=== PATIENT | male | born 1965 | race Caucasian/White ===

== ENCOUNTER 2023-01-19 08:45 | Outpatient (CLI) | payer OTHER, SELFPAY ==
--- NOTE | 2023-01-31 16:43 | WPDHOMESLEEP ---
Sleep Study - Home Unattended Date of Study: 01/19/23 Ordering Provider: Rc Watson, Interpreting Provider: Bianca Andino, DO Home Sleep Study Type: Watch PAT Height: 1.8 m Weight: 104.326 kg Body Mass Index: 32.1 Neck Circumference (inches): 17 [place]: 17 Reason for Sleep Study Previous dx of TIERA 18 years ago that resolved with sinus surgery. Now has unrefreshing sleep and daytime hypersomnia Sleep History The patient is a 57-year-old male with hypertension, hyperlipidemia, systemic lupus erythematosus glomerular nephritis syndrome, dysthymia, erectile dysfunction, GERD and history of tobacco use that had a sleep study ordered for evaluation of sleep apnea. The patient denies awakening from sleep short of breath. He occasionally awakens at night with heartburn, belching or cough. He frequently snores and is occasionally loud enough that others complain. He occasionally has trouble sleeping when he has a cold. He denies waking up gasping for air throughout the night. He rarely has breathing problems at night observed by himself or others. He occasionally sweats excessively at night. He denies having heart palpitations or irregular heartbeats during the night. He frequently falls asleep during the day but rarely falls asleep while driving. He denies sleep paralysis and cataplexy. He occasionally has trouble at school or work due to sleepiness. He rarely experiences vivid dreamlike scenes upon awakening or falling asleep. He denies feeling afraid of going to sleep. He occasionally has nightmares. He occasionally remembers his dreams. He frequently has thoughts racing through his mind. He occasionally feels sad, depressed and anxious. He rarely has muscular tension. He occasionally notices parts of his body jerk. He rarely kicks during the night. He rarely has crawling and aching feelings in his legs and occasionally has leg pain during the night. He rarely grinds his teeth during sleep and rarely awakens with morning jaw pain. He is rarely bothered by pain during the day and rarely awakened by pain during the night. He occasionally wakes up feeling stiff in the morning. He occasionally wakes up with sore or achy muscles. He occasionally wakes up with pain in the neck, spine or other joints. He goes to bed at 10:30 p.m. on weekdays and 11:00 p.m. on the weekends. It takes him 30-60 minutes to fall asleep. He wakes up 1-2 times throughout the night for unknown reasons. It can take him anywhere from 5 minutes up to an hour to fall back asleep. He wakes up at 6:45 a.m. on weekdays and between 8:29 a.m. on the weekends. He typically gets 6 hours of sleep per night. He will stay in bed for 15-20 minutes after waking up in the morning. He currently lives with his fidelmise. He does not consume any caffeinated beverages within 2 hours of bedtime. He does not engage in physical exercise before bedtime. He will read watch television before falling asleep. He denies taking naps in the afternoon or the evening. He consumes 1-2 caffeinated beverages per day. He consumes 1 alcoholic beverage per week. He quit smoking cigarettes 40 years ago. He denies recreational drug use. Sleep Procedure The sleep study was completed using Ept[employer]T a technically adequate device with seven channels: peripheral arterial tone, actigraphy, body position, snore, respiratory movement, pulse oximetry, sleep staging, and heart rate. Prior to using the device, the patient received verbal and written instructions for its application and was provided with the help desk phone number for additional telephonic instruction with 24-hour availability of qualified personnel to answer questions. The study was scored using [facility] guidelines. Sleep Architecture The patient had a total recording time of 8 hours 32 minutes and total sleep time of 7 hours 29 minutes. The sleep efficiency was 87.61%. Sleep latency was 16 minutes and REM latency was 85 minutes. The
[2023-01-31 16:54] VITALS: BMI 32.1
== END 2023-01-20 10:21 | disposition home or self-care (01) ==
LOC: ANHCSM 08:46
PROVIDERS: PCP Internal Medicine; Visit Provider Internal Medicine
DX: G47.33 Obstructive sleep apnea (adult) (pediatric) (principal)
CPT/HCPCS: 95800

== ENCOUNTER 2023-06-01 09:10 | Outpatient (CLI) | payer OTHER, SELFPAY ==
--- NOTE | 2023-06-13 20:51 | WPDSLEEPSTUD ---
Sleep Study Date of Study: 06/01/23 Ordering Provider: Rc Watson, Interpreting Physician: Yen Chavarria MD Sleep Study Type: BiPAP Titration Height: 1.8 m Weight: 149.685 kg Body Mass Index: 46.0 Neck Circumference (inches): 17 [place]: 18 Reason for Sleep Study * Home sleep test on January 19, 2023, severe obstructive sleep apnea, AHI 36.3, desaturation 80%, severe sleep apnea. Patient presents for full night titration Sleep History Bhupendra Maddox is a 58 year-old man with hypertension, hyperlipidemia, systemic lupus erythematosus glomerular nephritis syndrome, dysthymia, erectile dysfunction, GERD and history of tobacco use that had a sleep study ordered for evaluation of sleep apnea.? The patient denies awakening from sleep short of breath.? He occasionally awakens at night with heartburn, belching or cough.? He frequently snores and is occasionally loud enough that others complain.? He occasionally has trouble sleeping when he has a cold.? He denies waking up gasping for air throughout the night.? He rarely has breathing problems at night observed by himself or others.? He occasionally sweats excessively at night.? He denies having heart palpitations or irregular heartbeats during the night.? He frequently falls asleep during the day but rarely falls asleep while driving.? He denies sleep paralysis and cataplexy.? He occasionally has trouble at school or work due to sleepiness.? He rarely experiences vivid dreamlike scenes upon awakening or falling asleep.? He denies feeling afraid of going to sleep.? He occasionally has nightmares.? He occasionally remembers his dreams.? He frequently has thoughts racing through his mind.? He occasionally feels sad, depressed and anxious.? He rarely has muscular tension.? He occasionally notices parts of his body jerk.? He rarely kicks during the night.? He rarely has crawling and aching feelings in his legs and occasionally has leg pain during the night.? He rarely grinds his teeth during sleep and rarely awakens with morning jaw pain.? He is rarely bothered by pain during the day and rarely awakened by pain during the night.? He occasionally wakes up feeling stiff in the morning.? He occasionally wakes up with sore or achy muscles.? He occasionally wakes up with pain in the neck, spine or other joints.? He goes to bed at 10:30 p.m. on weekdays and 11:00 p.m. on the weekends.? It takes him 30-60 minutes to fall asleep.? He wakes up 1-2 times throughout the night for unknown reasons.? It can take him anywhere from 5 minutes up to an hour to fall back asleep.? He wakes up at 6:45 a.m. on weekdays and between 8:29 a.m. on the weekends.? He typically gets 6 hours of sleep per night.? He will stay in bed for 15-20 minutes after waking up in the morning.? He currently lives with his elizabethe.? He does not consume any caffeinated beverages within 2 hours of bedtime.? He does not engage in physical exercise before bedtime.? He will read watch television before falling asleep.? He denies taking naps in the afternoon or the evening. He consumes 1-2 caffeinated beverages per day.? He consumes 1 alcoholic beverage per week.? He quit smoking cigarettes 40 years ago.? He denies recreational drug use. [facility] Past Medical History Medical History (Updated 06/13/23 @ 20:55 by Yen Chavarria MD) Dyslipidemia Gastroesophageal reflux disease Hypertension TIERA (obstructive sleep apnea) SLE glomerulonephritis syndrome, WHO class II Medications Medications: albuterol HFA amlodipine 10 mg HS atorvastatin 20 mg daily carvedilol 12.5 mg b.i.d. chlorthalidone 25 mg fluticasone 50 mcg per spray 2 sprays each nostril daily losartan 100 mg HS magnesium oxide 400 mg 2 tablets daily omeprazole 40 mg daily spironolactone 25 mg daily tadalafil 20 mg p.r.n. Sleep Procedure This test was performed using the [employer] multiple channel system including EOG, EEG, submental EMG, EKG, nasal and oral airflow usi
[2023-06-13 20:53] VITALS: BMI 46.0
== END 2023-06-02 06:31 | disposition home or self-care (01) ==
LOC: ANHCSM 09:12
PROVIDERS: PCP Internal Medicine; Visit Provider Internal Medicine
DX: G47.33 Obstructive sleep apnea (adult) (pediatric) (principal); I10 Essential (primary) hypertension; E78.5 Hyperlipidemia, unspecified; M32.14 Glomerular disease in systemic lupus erythematosus; K21.9 Gastro-esophageal reflux disease without esophagitis; Z87.891 Personal history of nicotine dependence
CPT/HCPCS: 95811

== ENCOUNTER 2024-04-27 13:01 | Outpatient (CLI) | payer OTHER, SELFPAY ==
--- NOTE | ~2024-04-27 | CT_ITS ---
CT Scan of the Chest without Contrast: Clinical Indication: Cough Technique: Contiguous sections were acquired throughout the chest without intravenous contrast. Dose reduction technique was used on this scan by utilizing automated exposure control and iterative recon struction technique. The dose-length product (DLP) was 421.03 mGy-cm. Findings: There is no evidence of any significant mediastinal, hilar or axillary lymphadenopathy. Extensive cor onary artery calcifications are present. There is no evidence of pleural or pericardial effusion. The lungs are clear, aside from tiny right basilar calcified granuloma. Images through the upper abdomen reveal no abnormalities. Impression: No significant abnormalities seen. Reviewed, dictated and finalized at location . Impression: No significant abnormalities seen.
--- NOTE | 2024-05-01 21:31 | WPDPFTINT ---
PFT Procedure Performed PFT Procedure Performed Spirometry with Pre/Post Bronchodilator Plethysmography (Lung Vol) Diffusing Cap (DLCO) Flow Vol Loop PFT Interpretation DOS: 04/27/2024 REQUESTING: Juani Castillo PA-C REASON FOR TESTING: Cough PULMONARY FUNCTION TESTS Results are reliable and reproducible. Repeatability of spirometry FEV1 maneuver pre and post bronchodilator is Grade A. Spirometry: The pre-bronchodilator FEV1 is 3.83 L, 104%. The pre-bronchodilator FVC is 4.32 L, 90%. The FEV1/FVC ratio is 89%. After bronchodilator, the FEV1 is 3.63 L, 98%, -5%. The FVC is 4.39 L, 92%, +2%. The FEV1/FVC ratio is 83%. This shows an insignificant response to bronchodilator. Lung volumes: The total lung capacity is 6.20 L, 86%. The residual volume is 1.48 L, 64%, below the lower limit of normal. The RV/TLC is 24%, low end of normal. FRC is 2.27 L, 60%, below the lower limit of normal. Diffusion: DLCO is 18.8, 65%, mildly decreased. The DLCO/VA is 3.26, 78%, in the normal range. Flow volume loop: The flow volume loop is normal. IMPRESSION: Normal spirometry without response to bronchodilator, normal lung volumes, mild diffusion impairment which normalizes with alveolar volume. Lack of response to bronchodilator should not preclude use if clinically indicated. No prior studies to compare. Yen Chavarria MD
== END 2024-04-27 13:02 | disposition home or self-care (01) ==
PROVIDERS: PCP Internal Medicine; Visit Provider Physician Assistant
DX: R05.9 Cough, unspecified (principal); R06.09 Other forms of dyspnea
CPT/HCPCS: 71250; 94060; 94726; 94729

== ENCOUNTER 2025-09-17 07:56 | Outpatient (CLI) | payer OTHER, SELFPAY ==
[2025-09-10 14:27] VITALS: BMI 32.8
--- NOTE | 2025-09-10 14:28 | PC.NURSE ---
[facility] has started construction of its new state of the art ER which will open Spring 2026. With this, we anticipate parking may be a challenge for some our surgical patients and families. Parking spaces are limited but are available for all Surgical, obstetrics, and ER patients sharing this lot. If you arrive and find you are having a hard time finding a parking space, please note that we understand the challenges, please drive around the hospital and park near Hospital Entrance 1. When you enter this entrance, you can ask a volunteer to direct or take you back to the surgical waiting area to check in. We appreciate everyone?s understanding of these expected challenges while we build for your future. Report to the outpatient green pavilion on date __09/17/25___ at time ___8:30AM____ for procedure Time: __10:30AM__ YOU MAY BE MONITORED AT HOSPITAL FOR UP TO 4 HOURS AFTER YOUR PROCEDURE. A visitor will be allowed to accompany the patient into the hospital. You and your visitor will be asked to self-screen and do not enter if you have any COVID symptoms. A mask is OPTIONAL within the hospital. Patients are to have no food or drink 6 hours prior to procedure time Driving will be restricted after the procedure, you must have a person to drive you home. Labs will be drawn in preop area and once reviewed, you will be taken to radiology area for procedure. When the procedure is completed, you will be taken to outpatient where you will be monitored for several hours. You may have one visitor in this area. Other than holding anti-coagulants, patient may take other medication(s) as scheduled. Prior to your appointment date patients are instructed to hold anti-coagulants after discussing with ordering provider to stop. If unable to discontinue anti-coagulants please notify radiologist. ? No aspirin or warfarin (Coumadin) for 7 days prior to the procedure. ? No clopidogrel (Plavix), ticagrelor (Brilinta), prasugrel (Effient) or dabigatran (Pradaxa) for 5 days prior to the procedure. ? No rivaroxaban (Xarelto), apixaban (Eliquis), dipyridamole (Aggrenox or Persantine) or cilostazol (Pletal) for 2 days prior to the procedure. Medications to discontinue per physician: ___NONE Date to take last dose: Please leave all valuables, including medications, at home the day of procedure. The hospital will not accept responsibility for valuables. Wear comfortable, loose fitting clothing.? Follow any additional instructions given to you from ordering provider. Telephone instructions given to ___PATIENT and asked if any additional questions and then verbalized understanding. Patient advised to call scheduling provider office or registration scheduling [phone] if any additional questions.
[2025-09-17] VITALS (10 sets, daily range): BP systolic 141–167; BP diastolic 87–93; PULSE 48–58; RESP 16; TEMP 36.2; O2SAT 95–98
--- NOTE | ~2025-09-17 | US_ITS ---
EXAMINATION: US biopsy renal DATE: 09/17/2025 11:40 INDICATION: Other recurrent and persistent IgA TECHNIQUE: The procedure including the risks, benefits, and alternatives was discussed with the patient. Risks discussed included bleeding and infection. The patient understood the risks and agreed to proceed. A timeout was performed to verify the patient's name, date of , and procedure to be performed. The skin overlying the left kidney was prepped and draped in usual sterile fashion. Anesthetic was administered with 1% lidocaine subcutaneously. An 18 gauge core biopsy needle was then used to obtain 3 core biopsy specimens under continuous sonographic guidance. The entry site was cleaned and dressed. There were no immediate complications. FINDINGS: Ultrasound images demonstrate the needle in the kidney. IMPRESSION: 1. Ultrasound-guided random left kidney core needle biopsy. Reviewed, dictated and finalized at location A. HIATRIC NP
--- OUTSIDE RECORDS SUMMARY | 2025-09-17 08:03 | XMS_ITS | Clinical Summary ---
Author Organization [email or web address] Project Address [address] [place] [address] Care Team Providers Care Development Analyst Name Role Phone Rc Watson MD Primary Care Provider [phone] Source Comments [email or web address],non-owned Affiliates and Associated Physician Practices is amultiple site organization consisting of ambulatory clinics and hospital sitesin [place], [place], [place] and [place]. This disclosure is being madepursuant to the Care Everywhere program and may not contain all information available regarding this patient. Last updated [email or web address] Active Problems Problem Noted Date Diagnosed Date Systemic lupus erythematosus 10/31/2012 Essential (primary) hypertension 05/10/2012 Family History Medical History Relation Name Comments Hypertension Brother 1 Hypertension Brother 2 Hypertension Father Status: Alive CAD (Coronary Artery Disease) Mother Status: Heart Disease Mother Hypertension Mother Relation Name Status Comments Brother 1 Brother 2 Father Mother Social History Tobacco Use Types Packs/Day Years Used Date Smoking Tobacco: Former Alcohol Use Standard Drinks/Week Comments Yes 0 (1 standard drink = 0.6 oz pur e alcohol) Sex and Gender Information Value Date Recorded Sex Assigned at Not on file Legal Sex Male 6:11 PM BILLIARD TABLE REPAIRER Gender Identity Not on file Sexual Orientation Not on file Last Filed Vital Signs Vital Sign Reading Time Taken Comments Blood Pressure 175/105 10/30/2013 9:34 AM BILLIARD TABLE REPAIRER Pulse 75 10/30/2013 9:34 AM BILLIARD TABLE REPAIRER Temperature 36.6 C (97.9 F) 10/30/2013 9:34 AM BILLIARD TABLE REPAIRER Respiratory Rate 12 10/30/2013 9:34 AM BILLIARD TABLE REPAIRER Oxygen Saturation - - Inhaled Oxygen Concentration - - Weight 103.3 kg (227 lb 12.8 oz) 10/30/2013 9:34 AM BILLIARD TABLE REPAIRER Height 177.8 cm (5' 10) 10/30/2013 9:34 AM BILLIARD TABLE REPAIRER Body Mass Index 32.69 10/30/2013 9:34 AM BILLIARD TABLE REPAIRER Plan of Treatment Health Maintenance Due Date Last Done Comments COLOGUARD (AGES 45-75) - COL ON CA SCREENING 1965 COLON MONITORING 1965 COLONOSCOPY - COLON CA SCREENING 1964 CT COLONOGRAPHY - COLON CA SCREENING 1965 Colorectal Cancer Screening 1965 FIT - COLON CA SCREENING 1964 FLEX SIG - COLON CA SCREENING 1964 HIV SCREENING 1979 DTAP/TDAP/TD VACCINES (1 - Tdap) 1983 PNEUMOCOCCAL VACCINE 50+ (1 of 1 - PCV) 2014 ZOSTER VACCINE (1 of 2) 2014 LIPID TESTING 10/30/2018 10/30/2013, 10/31/2012 DEPRESSION SCREENING 10/17/2024 COVID-19 VACCINE (1 - 2024-2 6 season) 2025 INFLUENZA VACCINE (#1) 2025 08/05/2014 Respiratory Syncytial Virus (RSV) Vaccine Pt: or over 60 yrs (1 - 1-dose 75+ series) 2039 HEPATITIS C SCREENING Completed 06/14/2018 HEPATITIS B VACCINE Aged Out No longe r eligible based on patient's age to complete this topic HIB VACCINE Aged Out No longer eligi ble based on patient's age to complete this topic HPV VACCINE Aged Out No longer eligi ble based on patient's age to complete this topic MENINGOCOCCAL (Group B) VACCINE SHARED DECISION-MAKING Aged Out No longer eligible based on patient's age to complete this topic MENINGOCOCCAL GROUPS A/C/Y/W VACCINE Aged Out No longer eligible b ased on patient's age to complete this topic Procedures Procedure Name Priority Date/Time Associated Diagnosis Comments LIPID PROFILE Routine 10/30/2013 11:40 AM BILLIARD TABLE REPAIRER from Last 3 Months or Most Recently Relevant to Health Maintenance Results * (ABNORMAL) LIPID PROFILE (10/30/2013 11:40 AM BILLIARD TABLE REPAIRER) Cholesterol Total 140 <200 mg/dL [facility] HDL 38(L) > OR = 40 mg/dL [facility] Comment: ATP III classification of HDL cholesterol: <40 mg/dL Low; considered a major risk factor >60 mg/dL High; considered a negative risk factor Triglycerides 163(H) <150 mg/dL [facility] Comment: ATP III classification of Triglycerides: < 150 mg/dL Normal triglycerides 150-199 mg/dL Borderline-high triglycerides 200-400 mg/dL High triglycerides > 500 mg/dL Very high triglycerides LDL Calculated 69 0 - 100 mg/dL [facility] Comment: ATP III classification of LDL cholesterol: <100 mg/dL Optimal 100-129 Near optimal/above optimal 130-159 Borderline high 160-189 High >190 Very high 10/30/2013 11:4 0 AM BILLIARD TABLE REPAIRER 10/30/2013 2:05 PM BILLIARD TABLE REPAIRER us Raghav Murphy MD LAB - CHEMISTRY ORDERABLES Fin al Result [address] [phone] from Last 3 Months or Most Recently Relevant to Health Maintenance Care Teams Development Analyst Relationship Specialty Start Date End Date Rc Watson MD PCP - General 12/24/13
[2025-09-17 08:55] LABS: Platelet Count Result 196 k/mm3 (150-375)
[2025-09-17 09:06] LABS: INR 1.0; Prothrombin Time 13.4 Seconds (11.1-14.7)
--- NOTE | 2025-09-17 10:20 | S_PTH ---
PATIENT: Bhupendra Maddox LOC: [facility] U#:[id number] AGE/SX: 60/M ROOM: RE09/17/[address]: Osman Jeffers MD : 1965 BED: DIS: 09/17/2025 SPEC #: [id number] RECD: 09/17/25 11:04 STATUS: [facility] REQ #: [id number] GIGI: 09/17/25 10:[address]: Jayden Carrillo DEPT: [facility] Surgical RECD BY: Brianda Carter ENTERED: 09/17/25 11:04 SP TYPE: Surgical OTHR DR: Rc Watson, MD Osman Jeffers MD Tissues: A - Kidney Biopsy Procedures: Gross Exam Level 1 Intraoperative
[2025-09-17] MEDS: oxyCODONE HCL (*CRX) 5 MG TAB IR PO (13:26)
== END 2025-09-17 15:10 | disposition home or self-care (01) ==
PROVIDERS: PCP Internal Medicine; Referring Provider Internal Medicine Nephrology; Visit Provider Radiology Diagnostic Radiology
PROC: (CPT 76942; principal; 2025-09-17 10:30)
DX: Z01.818 Encounter for other preprocedural examination (principal); N02.B9 Other recurrent and persistent immunoglobulin A nephropathy; M32.14 Glomerular disease in systemic lupus erythematosus; R80.9 Proteinuria, unspecified
CPT/HCPCS: 36415; 50200; 76942; 85049; 85610; 88300; 88329; A9270